=== PATIENT | female | born 1960 | race Caucasian/White ===

== ENCOUNTER 2017-12-02 20:36 | Emergency (ER) | payer OTHER ==
[2017-12-02] MEDS ORDERED: NORCO 5/325 MG PO ONE (21:13)
--- NOTE | 2017-12-02 21:15 | ERPHSYRPT ---
- History of Present Illness Time Seen by Provider: 12/02/17 21:09 Source: patient Exam Limitations: no limitations Patient Subjective Stated Complaint: twisted right knee in mud today. pain in right knee Triage Nursing Assessment: pain in right knee. slight swelling noted.. ice appleid. pain with ambulation.. states pain when picking up leg. + pedal pulse present. pain to the back of knee down leg. Physician History: ABOUT 7 HOURS AGO PT WAS AT [employer] AND SLIPPED WITH RESULTANT RIGHT KNEE PAIN; DENIES PRIOR INJURY TO THE RIGHT KNEE; DENIES NUMBNESS OF THE RIGHT FOOT. Immunizations Up to Date: No - Review of Systems Musculoskeletal: Joint Pain (RIGHT KNEE PAIN) - Past Medical History Pertinent Past Medical History: Yes - Past Surgical History Past Surgical History: Yes Other Surgical History: c section x 2, hernia - Social History Smoking Status: Current every day smoker Exposure to second hand smoke: No Drug Use: none Patient Lives Alone: No - Female History Hx Now: No - Nursing Vital Signs Nursing Vital Signs: Initial Vital Signs Temperature 99.4 F 12/02/17 20:52 Pulse Rate 87 12/02/17 20:52 Respiratory Rate 18 12/02/17 20:52 Blood Pressure 158/85 12/02/17 20:52 O2 Sat by Pulse Oximetry 98 12/02/17 20:52 Pain Scale Pain Intensity 7 - Physical Exam General Appearance: alert Legs Exam: right leg: no evidence of injury Knees Exam: right knee: swelling (MILD EDEMA AND TENDERNESS OF THE RIGHT KNEE WITH FULL EXTENTION AND LIMITED FLEXION TO 110 DEGREES; ALL TOES OF THE RIGHT FOOT HAVE GOOD SENSATION, CAPILLARY REFILL AND ROM.) Ankle Exam: right ankle: normal range of motion, no evidence of injury Foot Exam: right foot: normal inspection, normal range of motion, no evidence of injury Neuro/Tendon Exam: normal sensation Mental Status Exam: alert, cooperative Skin Exam: warm, dry SpO2 Interpretation: normal SpO2: 98 Oxygen Delivery: Room Air - Course Nursing assessment & vital signs reviewed: Yes - Radiology Exams Right Knee X-ray Interpretation: Interpreted by me, No Fracture Ordered Tests: Active Orders 24 hr Category Date Time Status Pino Bandage Application -[facility] STAT Care 12/02/17 21:13 Active KNEE (3 VIEWS) Stat Exams 12/02/17 21:13 Taken Medication Summary Discontinued Medications Generic Name Dose Route Start Last Admin Trade Name Fredq PRN Reason Stop Dose Admin Hydrocodone Bitart/Acetaminophen 2 tab 12/02/17 21:13 12/02/17 21:19 Sterling 5/325 Mg PO 12/02/17 21:14 2 tab STAT ONE Administration Hydrocodone Bitart/Acetaminophen Confirm 12/02/17 21:18 Sterling 5/325 Mg Administered 12/02/17 21:19 Dose 2 tab .ROUTE .STK-MED ONE - Departure Time of Disposition: 22:01 Departure Disposition: Home Clinical Impression: RIGHT KNEE SPRAIN Condition: Stable Critical Care Time: No Referrals: ROSEMARIE COPELAND MD [Primary Care Provider] - Instructions: Knee Sprain (DC) Additional Instructions: FOLLOW UP WITH PRIVATE DOCTOR TOMORROW. ELEVATE RIGHT KNEE ABOVE HEART LEVEL FOR 24 HOURS. NO WEIGHT BEARING ON RIGHT FOOT FOR 4 DAYS. PINO WRAP TO RIGHT KNEE FOR 4 DAYS. USE CRUTCHES FOR 2 WEEKS. Prescriptions: Naproxen [Naprosyn] 500 mg PO Q12H PRN PRN #20 tablet PRN Reason: Pain
[2017-12-02] MEDS ORDERED: NORCO 5/325 MG ONE (21:18)
[2017-12-02 22:16] VITALS: BP 129/82; PULSE 96; O2SAT 94
--- NOTE | 2017-12-03 08:33 | XRAY ---
Indication: Pain following twisting injury. Comparison: None 3 views of the right knee demonstrates small nonspecific suprapatellar effusion, minimal medial compartment/patellar spurring, posterior fabella, and lower leg calcified soft tissue granulomas. No other bony, articular, or soft tissue abnormalities.
== END 2017-12-02 22:16 | disposition home or self-care (01) ==
LOC: ED 20:36
DX: S83.91XA Sprain of unspecified site of right knee, initial encounter (principal); X50.1XXA Overexertion from prolonged static or awkward postures, initial encounter
CPT/HCPCS: 73562; 99283; A9270-GY

== ENCOUNTER 2021-04-07 08:14 | Day surgery (SDC) | payer OTHER ==
--- NOTE | 2021-04-01 14:18 | HP ---
DATE OF SURGERY: 04/07/2021 HISTORY OF PRESENT ILLNESS: The patient is a 60 year-old female presents with complaints of some abdominal pain, pulling and bulging. The patient had about three ventral hernias repaired in the past. We did a CT scan on this lady and had a large infraumbilical midline ventral hernia about 7 x 6 cm with some omentum in it and a small loop of bowel, not obstructed or incarcerated. She also has a tiny umbilical hernia. She has history of 30-40% ventral hernia and 10-20% umbilical hernia and diastasis. PAST MEDICAL HISTORY: Diabetes. PAST SURGICAL HISTORY: Three ventral hernia repairs. Two sections. ALLERGIES: IBUPROFEN. IODINATED CONTRAST. MEDICATIONS: Vitamin C, zinc, B12, metformin, vitamin E, Victoza, Zoloft. FAMILY HISTORY: None reported. SOCIAL HISTORY: Smokes one pack a day. Denies alcohol. REVIEW OF SYSTEMS: CONSTITUTIONAL: Denies fever or chills. CHEST: Denies shortness of breath. CVS: Denies chest pain. ABDOMEN: Reports some ventral hernia pain. INTEGUMENTARY: Negative. PHYSICAL EXAMINATION: GENERAL: No acute distress. CHEST: Nonlabored. No shortness of breath. CVS: Regular rate and rhythm. ABDOMEN: Soft, small umbilical hernia, large ventral hernia. EXTREMITIES: No edema. NEUROLOGIC: Alert. PSYCHIATRIC: Appropriate. IMPRESSION: Symptomatic ventral and umbilical hernia. PLAN: Ventral hernia repair with mesh and umbilical hernia repair with mesh with Dr. Matias Chapa. As dictated by Shefali Angel NP.
[~2021-04-07 08:14] MED LIST: KEFZOL 1 GM ONE; Sensorcaine 0.25% 10 ML ONE
[2021-04-07] MEDS ORDERED: Lactated Ringers 1,000 ML IV ONE (08:19)
[2021-04-07] MEDS ORDERED: CEFAZOLIN 2 GM-D5W BAG** 2 GM/50 ML ML IV ONE (08:20)
[2021-04-07] MEDS ORDERED: Lactated Ringers 1,000 ML IV SCH (09:00)
[2021-04-07] MEDS ORDERED: CEFAZOLIN 2 GM-D5W BAG** 2 GM/50 ML ML IV SCH (09:00)
[2021-04-07 09:34] LABS: ANION GAP 11.5 MEQ/L (5-15); BLOOD UREA NITROGEN 13 mg/dL (7-17); CHLORIDE 102 mmol/L (98-107); Calcium 9.3 mg/dL (8.4-10.2); Carbon Dioxide 29 mmol/L (22-30); Creatinine 1 0.48 mg/dL (0.52-1.04); EST GLOMERULAR FILTRATION RATE > 60.0 ML/MIN; Glucose 155 mg/dL (74-106); Potassium 4.3 mmol/L (3.5-5.1); SODIUM 138 mmol/L (137-145)
[2021-04-07] MEDS ORDERED: BRIDION 200MG/2ML IV ONE (11:02)
[2021-04-07] MEDS ORDERED: Xylocaine-Mpf 2% 5 Ml Vial ONE (11:02)
[2021-04-07] MEDS ORDERED: Zemuron 100 MG/10 ML ONE (11:02)
[2021-04-07] MEDS ORDERED: TORAdol 30 mg Injection ONE (11:02)
[2021-04-07] MEDS ORDERED: Decadron 4 MG INJ ONE ×2 (11:02→11:45)
[2021-04-07] MEDS ORDERED: Zofran 4 MG/2 ML VIAL ONE (11:02)
[2021-04-07] MEDS ORDERED: SUBLIMAZE 100 MCG/2 ML ONE ×3 (11:02→12:45)
[2021-04-07] MEDS ORDERED: DIPRIVAN 200 MG/20 ML IV ONE (11:02)
[2021-04-07] MEDS ORDERED: Naropin 0.5% 30 ML VIAL ONE (11:45)
[2021-04-07] MEDS ORDERED: EPINEPHRINE 1MG/ML AMP ONE (11:45)
[2021-04-07] MEDS ORDERED: Sensorcaine 0.25% 10 ML ONE (11:58)
[2021-04-07] MEDS ORDERED: Hydromorphone 1 mg/ml Injection ONE (12:45)
[2021-04-07 13:33] VITALS: O2SAT 98
[2021-04-07 14:01] VITALS: BP 117/80; PULSE 74
--- NOTE | 2021-04-07 14:43 | OP ---
SURGERY DATE/TIME: 04/07/2021 1106 PREOPERATIVE DIAGNOSIS: Two ventral abdominal hernias. POSTOPERATIVE DIAGNOSIS: Two ventral abdominal hernias. PROCEDURE: Two ventral herniorrhaphies through two separate incisions with primary repair. SURGEON: Matias Chapa M.D. ANESTHESIA: General. COMPLICATIONS: None. CONDITION: Stable. INDICATION: Two symptomatic ventral hernias marked preoperatively, one about 1.5 inch infraumbilical and one to the right upper lateral pole of umbilical area. DESCRIPTION OF PROCEDURE: She is taken to surgery. General anesthetic. Routine prep and drape. Transverse incision over the larger one and the larger one dropped down with a pedunculated sac about 4 inches but the defect is actually fairly small, 3 cm across and about 1 cm wide primarily repaired readily with no tension. A finger was placed in this. The defect above and to the right the ventral hernia was present. The sac was then identified through a separate incision and the sac was removed. The defect approximated with running suture #1 Prolene and the defect was totally gone by palpation. Coming back to the original hernia, this two quadrant sutures with #1 Prolene and running suture #0 Prolene totally obliterated the lesion. A drain was placed and the drain was placed in continuity with both pockets. The pockets were by a membrane and this membrane was punctured with a drain. The two separate incisions were then closed separately with 4-0 Vicryl. Sterile dressing applied. The patient tolerated the procedure satisfactorily. IMPRESSION: Successful primary herniorrhaphy of two ventral abdominal hernias through two separate abdominal incisions.
== END 2021-04-07 14:30 | disposition home or self-care (01) ==
LOC: SDC 08:14
PROVIDERS: ATTEND Surgery
DX: K43.9 Ventral hernia without obstruction or gangrene (principal); E11.9 Type 2 diabetes mellitus without complications; Z79.899 Other long term (current) drug therapy
CPT/HCPCS: 36415; 64488; 76937; 80048; 88302; J0171; J0690; J1100; J1170; J1885; J2405; J2704; J2795; J3010; L0625

== ENCOUNTER 2022-04-09 11:02 | Emergency (ER) | payer OTHER ==
[2022-04-09] MEDS ORDERED: Sodium Chloride 0.9% 1000 ML 1,000 ML IV STA (12:21)
[2022-04-09] MEDS ORDERED: Zofran 4 MG/2 ML VIAL IV ONE (12:21)
[2022-04-09] MEDS ORDERED: TORAdol 30 mg Injection IV ONE (12:22)
--- NOTE | 2022-04-09 12:28 | ERPHSYRPT ---
- History of Present Illness Historian: patient Exam Limitations: no limitations Patient Subjective Stated Complaint: abdominal pain 8/10 since yesterday, vomiting started today. Triage Nursing Assessment: patient ambulated on own to ER with signs of abdominal discomfort. abdomen soft, tender. BS x 4. states abdominal pain 8/10. vomiting, no diarrhea. Physician History: 61 yo wf w lower abdominal pain x 2 days. Pain is sharp and 4/10 at present. It has been up to an 8. She has had similar pain over the last 3-4 months but has not had it evaluated. Pt has had vomiting/mild diarrhea wo nausea. Fever/melena/hematochezia/dysuria/hematuria/hematemesis/chest pain/dyspnea/cough all denied. Pt has a h/o multiple ventral hernias repaired. Timing/Duration: other (2 days) Activities at Onset: rest Quality: sharpness, stabbing Abdominal Pain Onset Location: RLQ, LLQ Pain Radiation: no radiation Severity of Pain-Max: severe Severity of Pain-Current: moderate Modifying Factors: Improves With: nothing, vomiting Associated Symptoms: diarrhea, vomiting, No back, No chest pain, No diaphoresis, No fever/chills, No fatigue, No headache, No heartburn, No loss of appetite, No nausea, No neck pain, No rash, No shortness of breath, No syncope, No weakness Previous symptoms: same symptoms as today Allergies/Adverse Reactions: morphine Allergy (Intermediate, Verified 04/07/21 08:35) Hives Iodinated Contrast Media Adverse Reaction (Verified 04/07/21 08:34) Hives Home Medications: Ascorbic Acid 500 mg [Vitamin C 500 MG] 1,000 mg PO DAILY 03/31/21 [History] Mecobalamin [B12 Active] 1,000 mcg PO DAILY 03/31/21 [History] Metformin HCl 500 mg [Glucophage 500 MG] 500 mg PO BIDWM 03/31/21 [History] Sertraline HCl 50 mg [Zoloft 50 mg Tablet] 50 mg PO DAILY 03/31/21 [History] Atorvastatin Calcium [Lipitor] 20 mg PO DAILY 04/09/22 [History] Ergocalciferol (Vitamin D2) [Vitamin D2] 1.25 mg PO WEEKLY 04/09/22 [History] Glimepiride 2 mg [Amaryl 2 MG] 2 mg PO DAILY 04/09/22 [History] Semaglutide [Ozempic] 1 mg SQ WEEKLY 04/09/22 [History] terbinafine HCL [Terbinafine HCl] 250 mg PO DAILY 04/09/22 [History] Hx Tetanus, Diphtheria Vaccination/Date Given: Yes Hx Influenza Vaccination/Date Given: No Hx Pneumococcal Vaccination/Date Given: No Immunizations Up to Date: Yes Travel Risk - International Travel Have you traveled outside of the country in past 3 weeks: No - Coronavirus Screening Symptoms: Vomiting/Diarrhea Close contact with a COVID-19 positive Pt in past 14-21 Days: No - Vaccine Status Have you recieved a Covid-19 vaccination: Yes Process Trainer: [facility] - Review of Systems Constitutional: No Symptoms Eyes: No Symptoms Ears, Nose, & Throat: No Symptoms Respiratory: No Symptoms Cardiac: No Symptoms Abdominal/Gastrointestinal: No Symptoms, Abdominal Pain, Vomiting, Diarrhea, No Nausea, No Hematemesis, No Hematochezia, No Melena Genitourinary Symptoms: No Symptoms Musculoskeletal: No Symptoms Skin: No Symptoms Neurological: No Symptoms Psychological: No Symptoms Endocrine: No Symptoms Hematologic/Lymphatic: No Symptoms Immunological/Allergic: No Symptoms - Past Medical History Pertinent Past Medical History: Yes Neurological History: No Pertinent History ENT History: No Pertinent History Cardiac History: No Pertinent History Respiratory History: Sleep Apnea Endocrine Medical History: Diabetes Type II Musculoskeletal History: Arthritis GI Medical History: No Pertinent History History: No Pertinent History Psycho-Social History: No Pertinent History Female Reproductive Disorders: No Pertinent History Other Medical History: sleep apnea-cpap at night - Past Surgical History Past Surgical History: Yes Neuro Surgical History: No Pertinent History Cardiac: No Pertinent History Respiratory: No Pertinent History Gastrointestinal: Cholecystectomy, Hernia Repair Genitourinary: No Pertinent History Musculoskeletal: Orthopedic Surgery Female Surgical History: Section Other Surgical History: c section x 2, hernia - Social History Smoking Status: Current every day smoker How long have you smoked: 40 years Exposure to second hand smoke: No Drug Use: none Patient Lives Alone: Yes (spouse) Significant Family History: no pertinent family hx - Nursing Vital Signs Nursing Vital Signs: Initial Vital Signs Pulse Rate 98 H 04/09/22 11:02 Respiratory Rate 20 04/09/22 11:02 Blood Pressure 133/113 04/09/22 11:02 Pain Scale Pain Intensity 4 Narrow pulse pressure - Physical Exam General Appearance: no apparent distress Eye Exam: PERRL/EOMI, eyes nml inspection Ears, Nose, Throat Exam: normal ENT inspection, TMs normal, pharynx normal, moist mucous membranes Neck Exam: normal inspection, non-tender, supple, full range of motion, No meningismus, No mass, No Brudzinski, No Kernig's Respiratory Exam: normal breath sounds, lungs clear, airway intact Cardiovascular Exam: regular rate/rhythm, normal heart sounds, normal peripheral pulses, capillary refill <2 sec Gastrointestinal/Abdomen Exam: soft, normal bowel sounds, tenderness (R and LLQ TTP wo guarding or rebound) Back Exam: normal inspection, normal range of motion Extremity Exam: normal inspection, normal range of motion Neurologic Exam: alert, oriented x 3, cooperative, anode worker II-XII nml as tested, normal mood/affect, nml cerebellar function, nml station & gait, sensation nml Skin Exam: normal color, warm, dry Lymphatic Exam: No adenopathy - Course Nursing assessment & vital signs reviewed: Yes - CT Exams Abdomen/Pelvis CT Interpretation: Tele-radiologist Report (Incarcerated pelvic ventral wall he rnia w subsequent obstruction) Ordered Tests: Active Orders 24 hr Category Date Time Status IV Insertion STAT Care 04/09/22 12:21 Completed ABDOMEN AND PELVIS W/0 CONTRAS [CT] Stat Exams 04/09/22 12:37 Taken AMYLASE Stat Lab 04/09/22 12:50 Completed CBC W DIFF Stat Lab 04/09/22 12:50 Completed CMP Stat Lab 04/09/22 12:50 Completed CULTURE,URINE Stat Lab 04/09/22 Received LIPASE Stat Lab 04/09/22 12:50 Completed TROPONIN Q4H Lab 04/09/22 12:50 Completed UA W/RFX CULTURE Stat Lab 04/09/22 Completed Medication Summary Discontinued Medications Generic Name Dose Route Start Last Admin Trade Name Freq PRN Reason Stop Dose Admin Sodium Chloride 1,000 mls @ 999 mls/hr 04/09/22 12:21 04/09/22 14:03 Sodium Chloride 0.9% 1000 Ml IV 04/09/22 13:21 Infused .Q1H1M STA Infusion Sodium Chloride Confirm 04/09/22 12:59 Sodium Chloride 0.9% 1000 Ml Administered 04/09/22 13:00 Dose 1,000 mls @ ud .ROUTE .STK-MED ONE Sodium Chloride 1,000 mls @ 120 mls/hr 04/09/22 15:45 04/09/22 15:51 Sodium Chloride 0.9% 1000 Ml IV 05/09/22 15:44 120 mls/hr .Q8H20M NASEEM Administration Sodium Chloride Confirm 04/09/22 15:50 Sodium Chloride 0.9% 1000 Ml Administered 04/09/22 15:51 Dose 1,000 mls @ ud .ROUTE .STK-MED ONE Ketorolac Tromethamine 15 mg 04/09/22 12:22 04/09/22 13:03 Ketorolac Tromethamine 30 Mg/Ml Inj IV 04/09/22 12:23 15 mg STAT ONE Administration Ketorolac Tromethamine Confirm 04/09/22 12:59 Ketorolac Tromethamine 30 Mg/Ml Inj Administered 04/09/22 13:00 Dose 30 mg .ROUTE .STK-MED ONE Ondansetron HCl 4 mg 04/09/22 12:21 04/09/22 13:03 Ondansetron Hcl 4 Mg/2 Ml Vial IV 04/09/22 12:22 4 mg STAT ONE Administration Ondansetron HCl Confirm 04/09/22 12:59 Ondansetron Hcl 4 Mg/2 Ml Vial Administered 04/09/22 13:00 Dose 4 mg .ROUTE .STK-MED ONE Lab/Rad Data: Laboratory Result Diagrams 04/09/22 12:50 04/09/22 12:50 Laboratory Results 04/09/22 04/09/22 04/09/22 Range/Units Unknown 12:50 12:50 WBC (4.0-10.5) x10^3/uL RBC (4.1-5.4) x10^6/uL Hgb (12.0-16.0) g/dL Hct (35-47) % MCV (78-100) fL MCH (26-32) pg MCHC (32-36) g/dL RDW (11.5-14.0) % Plt Count (150-450) x10^3/uL MPV (7.5-11.0) fL Gran % (36.0-66.0) % Immature Gran % (Auto) (0.00-0.4) % Nucleat RBC Rel Count (0.00-0.1) % Eos # (Auto) (0-0.5) x10^3/uL Immature Gran # (Auto) (0.00-0.03) x10^3u/L Absolute Lymphs (auto) (1.0-4.6) x10^3/uL Absolute Monos (auto) (0.0-1.3) x10^3/uL Absolute Nucleated RBC (0.00-0.01) x10^3u/L Lymphocytes % (24.0-44.0) % Monocytes % (0.0-12.0) % Eosinophils % (0.00-5.0) % Basophils % (0.0-0.4) % Absolute Granulocytes (1.4-6.9) x10^3/uL Basophils # (0-0.4) x10^3/uL Sodium 137 (137-145) mmol/L Potassium 4.4 (3.5-5.1) mmol/L Chloride 100 (98-107) mmol/L Carbon Dioxide 26 (22-30) mmol/L Anion Gap 15.9 H (5-15) MEQ/L BUN 14 (7-17) mg/dL Creatinine 0.63 (0.52-1.04) mg/dL Estimated GFR > 60.0 ML/MIN Glucose 214 H (74-106) mg/dL Calcium 10.0 (8.4-10.2) mg/dL Total Bilirubin 0.80 (0.2-1.3) mg/dL AST 22 (14-36) U/L ALT 19 (0-35) U/L Alkaline Phosphatase 132 H (38-126) U/L Troponin I < 0.012 (0.000-0.034) ng/mL Serum Total Protein 8.2 (6.3-8.2) g/dL Albumin 4.7 (3.5-5.0) g/dL Amylase 68 (30-110) U/L Lipase 64 (23-300) U/L Urinalys Dipstick Clnc MAIN LAB Urine Color YELLOW (YELLOW) Urine Appearance SLIGHTLY CLOUDY (CLEAR) Urine pH 5.5 (5-6) Ur Specific Benton >=1.030 (1.005-1.025) POC Urine Protein Conf 30 (Negative) Urine Ketones NEGATIVE (NEGATIVE) Urine Nitrite NEGATIVE (NEGATIVE) Urine Bilirubin NEGATIVE (NEGATIVE) Urine Urobilinogen 1 (0-1) mg/dL Urine Leukocytes TRACE (NEGATIVE) Urine WBC (Auto) 11-15 (0-5) /HPF Urine RBC (Auto) NONE (0-2) /HPF U Hyaline Cast (Auto) 0-2 (0-2) /LPF U Epithel Cells (Auto) RARE (FEW) /HPF Urine Bacteria (Auto) RARE (NEGATIVE) /HPF Urine RBC NEGATIVE (0-5) Brigido/ul Urine Mucus (Auto) SLIGHT (NEGATIVE) /HPF Ur Culture Indicated? YES Urine Glucose NEGATIVE (NEGATIVE) mg/dL 04/09/22 Range/Units 12:50 WBC 14.0 H (4.0-10.5) x10^3/uL RBC 4.78 (4.1-5.4) x10^6/uL Hgb 14.5 (12.0-16.0) g/dL Hct 43.8 (35-47) % MCV 91.6 (78-100) fL MCH 30.3 (26-32) pg MCHC 33.1 (32-36) g/dL RDW 12.7 (11.5-14.0) % Plt Count 267 (150-450) x10^3/uL MPV 10.8 (7.5-11.0) fL Gran % 85.6 H (36.0-66.0) % Immature Gran % (Auto) 0.4 (0.00-0.4) % Nucleat RBC Rel Count 0.0 (0.00-0.1) % Eos # (Auto) 0.04 (0-0.5) x10^3/uL Immature Gran # (Auto) 0.05 H (0.00-0.03) x10^3u/L Absolute Lymphs (auto) 1.02 (1.0-4.6) x10^3/uL Absolute Monos (auto) 0.84 (0.0-1.3) x10^3/uL Absolute Nucleated RBC 0.00 (0.00-0.01) x10^3u/L Lymphocytes % 7.3 L (24.0-44.0) % Monocytes % 6.0 (0.0-12.0) % Eosinophils % 0.3 (0.00-5.0) % Basophils % 0.4 (0.0-0.4) % Absolute Granulocytes 12.01 H (1.4-6.9) x10^3/uL Basophils # 0.05 (0-0.4) x10^3/uL Sodium (137-145) mmol/L Potassium (3.5-5.1) mmol/L Chloride (98-107) mmol/L Carbon Dioxide (22-30) mmol/L Anion Gap (5-15) MEQ/L BUN (7-17) mg/dL Creatinine (0.52-1.04) mg/dL Estimated GFR ML/MIN Glucose (74-106) mg/dL Calcium (8.4-10.2) mg/dL Total Bilirubin (0.2-1.3) mg/dL AST (14-36) U/L ALT (0-35) U/L Alkaline Phosphatase (38-126) U/L Troponin I (0.000-0.034) ng/mL Serum Total Protein (6.3-8.2) g/dL Albumin (3.5-5.0) g/dL Amylase (30-110) U/L Lipase (23-300) U/L Urinalys Dipstick Clnc Urine Color (YELLOW) Urine Appearance (CLEAR) Urine pH (5-6) Ur Specific Benton (1.005-1.025) POC Urine Protein Conf (Negative) Urine Ketones (NEGATIVE) Urine Nitrite (NEGATIVE) Urine Bilirubin (NEGATIVE) Urine Urobilinogen (0-1) mg/dL Urine Leukocytes (NEGATIVE) Urine WBC (Auto) (0-5) /HPF Urine RBC (Auto) (0-2) /HPF U Hyaline Cast (Auto) (0-2) /LPF U Epithel Cells (Auto) (FEW) /HPF Urine Bacteria (Auto) (NEGATIVE) /HPF Urine RBC (0-5) Brigido/ul Urine Mucus (Auto) (NEGATIVE) /HPF Ur Culture Indicated? Urine Glucose (NEGATIVE) mg/dL - Progress Progress: improved Progress Note: 04/09/22 15:48 Pain improved w 15mg IV Toradol/1L NS bolus Spoke w Dr. Goode, on-call for roxanna Barrrea Pt transferred to [facility] under care of hospitalist Spoke w Dr. Dumont, Hospitalist, wants Dr. Goode to be primary physician [facility] called and stated that Dr. Dumont would be admitting pt, but no beds until tomorrow Spoke w Dr. Oliveira about admit to [place] until bed ready at [facility]. She wanted Dr. Goode called to see if ok w admit at [place] until transfer Spoke w Dr. Goode again and wants pt transferred to [facility] ER Spoke w [facility] and relayed message that Dr. Goode wanted pt transferred to ER. 04/09/22 16:40 Pt refused to be transferred by ambulance/Risks explained to pt/NG tube not placed since pt transferring per private vehicle/Pt stable at time of transfer Counseled pt/family regarding: lab results, diagnosis, need for follow-up, rad results - Departure Departure Disposition: Transfer Clinical Impression: Bowel obstruction Condition: Stable Critical Care Time: No Referrals: ROSEMARIE COPELAND MD [Primary Care Provider] - Follow up/PCP as directed Instructions: Small Bowel Obstruction (DC)
[2022-04-09 12:51] LABS: Appearance SLIGHTLY CLOUDY (CLEAR); Bacteria RARE /HPF (NEGATIVE); Bilirubin NEGATIVE (NEGATIVE); Dipstick done @ ? MAIN LAB; Epithelial Cells RARE /HPF (FEW); Glucose NEGATIVE (NEGATIVE); Hyaline Casts 0-2 /LPF (0-2); Ketones NEGATIVE (NEGATIVE); Mucus SLIGHT /HPF (NEGATIVE); Nitrite NEGATIVE (NEGATIVE); Ph 5.5 (5-6); Protein,Urine Dip 30 (Negative); RBC NEGATIVE Ery/ul (0-5); Specific Gravity >=1.030 (1.005-1.025); Urine Cultured Indicated? YES; Urobilinogen 1 mg/dL (0-1)
[2022-04-09] MEDS ORDERED: Zofran 4 MG/2 ML VIAL ONE (12:59)
[2022-04-09] MEDS ORDERED: TORAdol 30 mg Injection ONE (12:59)
[2022-04-09] MEDS ORDERED: Sodium Chloride 0.9% 1000 ML 1,000 ML ONE ×2 (12:59→15:50)
[2022-04-09 13:14] LABS: Absolute Neutrophil Ct (ANC) 12.01 x10^3/uL (1.4-6.9); Basophil (Absolute #) 0.05 x10^3/uL (0-0.4); Eosinophil % 0.3 % (0.00-5.0); Eosinophil (Absolute #) 0.04 x10^3/uL (0-0.5); Hematocrit 43.8 % (35-47); Hemoglobin 14.5 g/dL (12.0-16.0); Lymphocyte (Absolute #) 1.02 x10^3/uL (1.0-4.6); Lymphocytes % 7.3 % (24.0-44.0); Mean Cell Volume 91.6 fL (78-100); Mean Corpuscular Hemoglobin 30.3 pg (26-32); Mean Corpuscular Hgb Concent. 33.1 g/dL (32-36); Mean Platelet Volume 10.8 fL (7.5-11.0); Monocyte (Absolute #) 0.84 x10^3/uL (0.0-1.3); Neutrophil % 85.6 % (36.0-66.0); Platelet Count 267 x10^3/uL (150-450); Red Blood Count 4.78 x10^6/uL (4.1-5.4); Red Cell Distribution Width 12.7 % (11.5-14.0)
[2022-04-09 13:23] LABS: ALBUMIN 4.7 g/dL (3.5-5.0); ALKALINE PHOSPHATASE 132 U/L (38-126); AMYLASE 68 U/L (30-110); ANION GAP 15.9 MEQ/L (5-15); BLOOD UREA NITROGEN 14 mg/dL (7-17); CHLORIDE 100 mmol/L (98-107); Carbon Dioxide 26 mmol/L (22-30); Creatinine 1 0.63 mg/dL (0.52-1.04); EST GLOMERULAR FILTRATION RATE > 60.0 ML/MIN; Glucose 214 mg/dL (74-106); LIPASE 64 U/L (23-300); Potassium 4.4 mmol/L (3.5-5.1); SGOT/AST 22 U/L (14-36); SGPT/ALT 19 U/L (0-35); SODIUM 137 mmol/L (137-145); Total Protein 8.2 g/dL (6.3-8.2)
[2022-04-09] MEDS ORDERED: Sodium Chloride 0.9% 1000 ML 1,000 ML IV SCH (15:45)
[2022-04-09 16:05] VITALS: PULSE 84
[2022-04-09 17:07] VITALS: BP 126/81; O2SAT 92
--- NOTE | 2022-04-09 20:02 | XRAY ---
Indication: Abdomen pain, nausea, vomiting, diarrhea. Multiple contiguous axial images obtained through the abdomen and pelvis without contrast. Comparison: February 16, 2021 Lung bases again demonstrates minimal dependent atelectasis and small left lower lobe calcified granuloma. Heart not enlarged with small left infrahilar calcified node. New small fluid-filled hiatal hernia presumed from gastroesophageal reflux. Again infraumbilical ventral hernia with herniated omental fat and small bowel loop. Herniated small bowel is now mildly fluid distended with the more proximal small bowel loops fluid distended up to 3.8 cm concerning for incarceration with obstruction. Colon is decompressed with little bowel gas. No free fluid/air. Normal appendix. Again incidental tiny hepatic/splenic calcified granulomas and cholecystectomy. Remaining liver, pancreas, spleen, adrenal glands, kidneys, ureters, bladder, and uterus are unremarkable for noncontrast exam. There remains mild scattered aortoiliac calcifications without AAA. Osseous structures intact again with mild/moderate degenerative changes throughout the spine. Impression: 1. Again infraumbilical ventral hernia with now CT findings favoring incarcerated small bowel loop with obstruction as detailed. 2. New small hiatal hernia with gastroesophageal reflux. 3. Again degenerative spondylosis and old granulomatous disease. Comment: Preliminary interpretation made by [facility]. No critical discrepancy.
== END 2022-04-09 17:07 | disposition short-term general hospital (02) ==
LOC: ED 11:02
DX: K56.609 Unspecified intestinal obstruction, unspecified as to partial versus complete obstruction (principal); R10.30 Lower abdominal pain, unspecified; R11.10 Vomiting, unspecified; R19.7 Diarrhea, unspecified; E11.9 Type 2 diabetes mellitus without complications; Z72.0 Tobacco use; Z79.84 Long term (current) use of oral hypoglycemic drugs; Z79.899 Other long term (current) drug therapy
CPT/HCPCS: 36000; 36415; 74176; 80053; 81015; 82150; 83690; 84484; 85025; 87086; 96374; 96375; 99285; J1885; J2405